=== PATIENT | male | born 1960 | race Caucasian/White ===

== ENCOUNTER 2018-04-02 22:34 | Emergency (ER) | payer MEDICAID ==
[2018-04-02 22:39] VITALS: TEMP 98.2; O2SAT 96
[2018-04-02] MEDS ORDERED: diaZEpam 10 mg/2 ml Inj IVP ONE (22:54)
--- NOTE | 2018-04-02 22:54 | ED PDOC ---
HPI: Back Time Seen by Provider: 04/02/18 22:41 Chief Complaint (Nursing): Back Pain Chief Complaint (Provider): Back Pain History Per: Patient, Family (significant other at bedside) History/Exam Limitations: no limitations Onset/Duration Of Symptoms: Days (x 8 weeks) Current Symptoms Are (Timing): Still Present Quality Of Discomfort: Sharp, Cramping Associated Symptoms: None Exacerbating Factor(s): Movement Additional Complaint(s): Patient is a 57 year old male who presents for evaluation of right mid back pain that has been going on for the past 8 weeks, worsening over the past two weeks. Patient saw his PMD 2 weeks ago and was given a shot and sent home with muscle relaxers(cannot recall name). Patient took them for 2 days but states " it did nothing", so he has not taken them since. Patient last took Ibuprofen 800mg PO at noon today. Patient describes the pain as a sharp cramping sensation that worsens with movement. Patient denies: SOB, chest pain, cough, fever, chills, incontinence, urinary symptoms, nausea, vomiting, diarrhea, abdominal pain, history of kidney stones, saddle anesthesia, weakness/numbness, headache, visual changes, hematuria, falls/trauma. Patient reports no history of back injury or surgery. PMD: Mary Past Medical History Reviewed: Historical Data, Nursing Documentation, Vital Signs Vital Signs: Last Vital Signs Temp 98.2 F 04/02/18 22:36 Pulse 78 04/02/18 22:36 Resp 18 04/02/18 22:36 BP 158/108 H 04/02/18 22:36 Pulse Ox 96 04/02/18 22:36 - Medical History PMH: Diabetes, HTN - Surgical History Surgical History: No Surg Hx - Family History Family History: States: Unknown Family Hx - Social History Current smoker - smoking cessation education provided: Yes (1cig/day) Drugs: Denies - Home Medications Home Medications: Ambulatory Orders Medication Instructions Recorded Lisinopril mg PO DAILY 08/03/14 Metformin 500 mg PO DAILY 08/03/14 Metoprolol mg PO BID 08/03/14 Pravastatin mg PO DAILY 08/03/14 oxyCODONE/Acetaminophen [Percocet 1 ea PO Q6 PRN #10 tab 06/14/15 5/325 mg Tab] Meloxicam [Mobic] 15 mg PO DAILY #14 tab 04/02/18 Methocarbamol [Robaxin-750] 750 mg PO Q8 PRN #15 tablet 04/02/18 - Allergies Allergies/Adverse Reactions: Allergies Allergy/AdvReac Type Severity Reaction Status Date / Time No Known Allergies Allergy Verified 08/03/14 09:27 Review of Systems ROS Statement: Except As Marked, All Systems Reviewed And Found Negative Musculoskeletal: Positive for: Back Pain Physical Exam - Reviewed Nursing Documentation Reviewed: Yes Vital Signs Reviewed: Yes - Physical Exam Appears: Positive for: Well, Non-toxic, No Acute Distress (Resting comfortably.) Head Exam: Positive for: ATRAUMATIC, NORMOCEPHALIC Skin: Positive for: Normal Color, Warm, Dry Eye Exam: Positive for: EOMI, PERRL ENT: Positive for: Other (Mucus membranes moist. Airway patent, (-) stridor. ) Neck: Positive for: Painless ROM, Supple Cardiovascular/Chest: Positive for: Regular Rate, Rhythm. Negative for: Bradycardia, Tachycardia Respiratory: Positive for: Normal Breath Sounds. Negative for: Decreased Breath Sounds, Accessory Muscle Use, Wheezing, Respiratory Distress Gastrointestinal/Abdominal: Positive for: Bowel Sounds (active x4), Soft. Negative for: Tenderness, Mass, Distended, Guarding, Rebound Back: Positive for: R CVA Tenderness (possible), Other ((+)right paralumbar and parathoracic tenderness (-)overlying skin changes). Negative for: Vertebral Tenderness Extremity: Positive for: Normal ROM Neurologic/Psych: Positive for: Alert, Oriented (x3), Gait (steady in ED). Negative for: Motor/Sensory Deficits, Aphasia, Facial Droop - Laboratory Results Result Diagrams: 04/02/18 23:17 04/02/18 23:17 - ECG O2 Sat by Pulse Oximetry: 96 (RA) Pulse Ox Interpretation: Normal Medical Decision Making Medical Decision Makin Initial Impression: Acute back pain Plan: -IV access -CBC -CMP -IV Toradol -PO Valium (Patient not driving home) -U/A -U/C -Re-evaluation 2350 Repeat BP: 142/82 CMP, CBC, and U/A unremarkable. On re-evaluation, patient reports improvement of symptoms. On exam, patient remains AAOx3, in no acute distress. On exam, neck is supple, lungs CTA, cardiac RRR, abdomen is soft and non-tender, neuro exam shows no focal findings. Ambulating in ED without difficulty. VSS, stable for discharge. Diagnostic results d/w the patient in great detail. Dx of acute back pain, muscle spasm of back d/w the patient. Based on history, exam and diagnostic results plan will be for discharge and outpatient follow up with PMD/Ortho. Advised to follow up with primary care physician in 1-2 days without fail. Advised to take medication as prescribed. Return to the emergency room at any time for any new or worsening symptoms. Patient states he fully agrees with and understands discharge instructions. States that he agrees with the plan and disposition. Verbalized and repeated discharge instructions and plan. I have given the patient opportunity to ask any additional questions. Disposition - Clinical Impression Clinical Impression: Acute back pain, Back muscle spasm - Patient ED Disposition Is Patient to be Admitted: No Counseled Patient/Family Regarding: Studies Performed, Diagnosis, Need For Followup, Rx Given - Disposition Referrals: Jose Rosa MD [Staff Provider] - Mac Hernandez MD [Family Provider] - Disposition: Routine/Home Disposition Time: 23:55 Condition: IMPROVED Additional Instructions: FOLLOW UP WITH PMD IN 1-2 DAYS WITHOUT FAIL. RETURN TO ED WITH ANY NEW OR WORSENING SYMPTOMS. Prescriptions: Meloxicam [Mobic] 15 mg PO DAILY #14 tab Methocarbamol [Robaxin-750] 750 mg PO Q8 PRN #15 tablet PRN Reason: Muscle Spasm Instructions: Low Back Pain in Adults, Upper Back Pain, Back Exercises, Muscle Spasms (DC) Forms: [facility] (Bel[place]ian) Print Language: MALAGASY - POA Present On Arrival: None Results - Lab Results Lab Results: 04/02/18 04/02/18 04/02/18 23:17 23:17 23:07 WBC 8.5 RBC 4.72 Hgb 14.1 Hct 41.8 MCV 88.7 MCH 30.0 MCHC 33.8 RDW 14.6 H Plt Count 177 MPV 8.7 Neut % (Auto) 61.2 Lymph % (Auto) 26.5 [place] % (Auto) 8.2 Eos % (Auto) 3.1 Baso % (Auto) 1.0 Neut # (Auto) 5.2 Lymph # (Auto) 2.3 [place] # (Auto) 0.7 Eos # (Auto) 0.3 Baso # (Auto) 0.1 Sodium 140 Potassium 3.8 Chloride 102 Carbon Dioxide 29 Anion Gap 13 BUN 17 Creatinine 0.9 Est GFR ( Amer) > 60 Est GFR (Non-Af Amer) > 60 Random Glucose 113 H Calcium 9.4 Total Bilirubin 1.1 AST 25 ALT 33 Alkaline Phosphatase 51 Total Protein 7.5 Albumin 4.3 Globulin 3.1 Albumin/Globulin Ratio 1.4 Urine Color Yellow Urine Clarity Clear Urine pH 5.0 Ur Specific [place] 1.014 Urine Protein Negative Urine Glucose (UA) Neg Urine Ketones Negative Urine Blood Negative Urine Nitrate Negative Urine Bilirubin Negative Urine Urobilinogen 0.2-1.0 Ur Leukocyte Esterase Neg Urine RBC (Auto) 1 Urine Microscopic WBC < 1 Hyaline Casts 0-2
[2018-04-02 23:17] LABS: URINE BILIRUBIN NEGATIVE (NEGATIVE); URINE BLOOD NEGATIVE (NEGATIVE); URINE CLARITY CLEAR (Clear); URINE COLOR YELLOW (YELLOW); URINE GLUCOSE (UA) NEG (Normal); URINE LEUKOCYTE ESTERASE NEG Leu/uL (Negative); URINE PROTEIN NEGATIVE (NEGATIVE); URINE UROBILINOGEN 0.2-1.0 mg/dL (0.2-1.0)
[2018-04-02 23:21] LABS: BASO # 0.1 K/uL (0.0-0.2); EOS # 0.3 K/uL (0.0-0.7); EOS % 3.1 % (0.0-4.0); HEMOGLOBIN 14.1 g/dL (12.0-18.0); LYMPH # 2.3 K/uL (1.0-4.3); LYMPH % 26.5 % (20.0-40.0); MEAN CELL VOLUME 88.7 fl (80.0-94.0); MEAN CORPUSCULAR HGB CONC 33.8 g/dL (33.0-37.0); MEAN PLATELET VOLUME 8.7 fl (7.2-11.7); MONO # 0.7 K/uL (0.0-0.8); MONO % 8.2 % (0.0-10.0); NEUT # 5.2 K/uL (1.8-7.0); NEUT % 61.2 % (50.0-75.0); RBC 4.72 Mil/uL (4.40-5.90); RED CELL DISTRIBUTION WIDTH 14.6 % (11.5-14.5); WHITE BLOOD COUNT 8.5 K/uL (4.8-10.8)
[2018-04-02 23:25] LABS: URINE HYALINE CAST 0-2 /hpf (0-2)
[2018-04-02 23:29] LABS: ALB/GLOB RATIO 1.4 (1.0-2.1); ALBUMIN 4.3 g/dL (3.5-5.0); ALT/SGPT 33 U/L (21-72); AST/SGOT 25 U/L (17-59); BLOOD UREA NITROGEN 17 mg/dl (9-20); CALCIUM 9.4 mg/dL (8.4-10.2); GFR AFRICAN-AMERICAN > 60; GFR NON-AFRICAN AMERICAN > 60
[2018-04-02 23:49] VITALS: BP 142/2; PULSE 70; RESP 15
== END 2018-04-02 23:49 | disposition home or self-care (01) ==
LOC: H.ER 22:34
DX: M62.838 Other muscle spasm (principal); E11.9 Type 2 diabetes mellitus without complications; F17.200 Nicotine dependence, unspecified, uncomplicated; I10 Essential (primary) hypertension; Z79.84 Long term (current) use of oral hypoglycemic drugs
CPT/HCPCS: 80053; 81003; 85025; 87086; 96374; 99283; J1885